=== PATIENT | female | born 1955 | race Caucasian/White ===

== ENCOUNTER 2019-11-09 08:49 | Emergency (ER) | payer BC, SELFPAY ==
[~2019-11-09] VITALS: Ht 152.4 cm; Wt 65.8 kg
[~2019-11-09 08:49] MED LIST: [UNRECOGNIZED DRUG - CODE] PO
[2019-11-09 09:08] VITALS: BP 141/72
--- NOTE | 2019-11-09 09:15 | NUR ---
BIB SELF C/O COUGH X 1 WEEK. PT HAD COVID TEST NEGATIVE 11/04/19. MED HX: COPD
--- NOTE | 2019-11-09 09:18 | NUR ---
Patient being evaluated by DR ZHU at bedside.
--- NOTE | 2019-11-09 10:03 | NUR ---
Patient discharged with v/s stable. Written and verbal after care instructions given and explained. Patient alert, oriented and verbalized understanding of instructions. Ambulatory with steady gait. All questions addressed prior to discharge. ID band removed. Patient advised to follow up with PMD. Rx of BENZONATATE, PREDNISONE &ALBUTEROL given. Patient educated on indication of medication including possible reaction and side effects. Opportunity to ask questions provided and answered.
[2019-11-09 10:04] VITALS: BP 141/72
== END 2019-11-09 10:03 | disposition home or self-care (01) ==
LOC: MED 08:49
DX: J44.1 Chronic obstructive pulmonary disease with (acute) exacerbation (principal); F17.200 Nicotine dependence, unspecified, uncomplicated; I10 Essential (primary) hypertension; Z79.899 Other long term (current) drug therapy
CPT/HCPCS: 71045; 99283; Q0092